=== PATIENT | male | born 1980 ===

== ENCOUNTER 2025-03-08 06:00 | Day surgery (SDC) | payer OTHER ==
[2025-03-03 11:53] LABS: BASO % 0.8 % (0.1-1.2); EOS # 0.04 (0.04-0.54); EOS % 0.5 % (0.7-7.0); LYMPH # 1.35 (1.18-3.74); LYMPH % 17.7 % (19.3-53.1); MEAN PLATELET VOLUME 9.60 fl (9.4-12.4); MONO # 0.53 (0.24-0.82); MONO % 7.0 % (4.7-12.5); NEUT # 5.61 (1.56-6.13); NEUT % 73.6 % (34.0-71.1); RED CELL DISTRIBUTION WIDTH 12.3 % (11.6-14.4)
[2025-03-03 11:56] LABS: URINE APPEARANCE Clear; URINE BILIRRUBIN Negative (NEGATIVE); URINE BLOOD Negative; URINE COLOR Yellow; URINE GLUCOSE Negative (NEGATIVE); URINE KETONE Negative (NEGATIVE); URINE LEUKOCYTE Negative; URINE NITRATE Negative; URINE PROTEIN Negative (NEGATIVE); URINE UROBILINOGEN 0.2 E.U./dl
[2025-03-03 12:01] LABS: URINE BACTERIA 0 uL (0.0-1933); URINE CAST 0.00 uL (0.0-1.40); URINE EPITHELIAL CELLS 0.0 uL (0.0-38.8); URINE RBC 0.1 uL (0.0-20.8); URINE WBC 0.2 uL (0.0-23.2)
[2025-03-03 12:09] VITALS: BP 153/92
[2025-03-03 12:17] LABS: INR 1.02
[2025-03-03 12:54] LABS: ALT/SGPT 33.0 U/L (12-78); AST/SGOT 22.0 U/L (15-37); BILIRUBIN TOTAL 0.85 mg/dL (0.3-1.2); BUN CREA RATIO 15.0 (7.0-25.0); CREATININE SERUM 0.75 mg/dL (0.70-1.30); GFR 113.66; GLOBULINA 3.0 G/DL (2.4-3.5); GLUCOSE FASTING 97.0 mg/dL (65-100); OSMOLALITY SERUM 281.0 MOSM/KG (275-295)
[~2025-03-08] VITALS: Ht 180.3 cm; Wt 80.7 kg
[~2025-03-08 06:00] MED LIST: BUPROPION; LEVO-T112 MCG PO; LEXAPRO20 MG PO; VASOTEC20 M1 PO
[2025-03-08] MEDS ORDERED: CEFAZOLIN SODIUM 1,000 MG VIAL ONE (06:16)
== END 2025-03-08 12:00 | disposition home or self-care (01) ==
LOC: CIR.AMB 06:00
PROVIDERS: ATTEND Surgery
DX: K40.91 Unilateral inguinal hernia, without obstruction or gangrene, recurrent (principal)